=== PATIENT | male | born 1970 | race Caucasian/White ===

== ENCOUNTER 2023-03-31 08:50 | Outpatient (OUT) | payer MEDICARE, MEDICAID, SELFPAY ==
[2023-03-31 10:18] LABS: Basophils Absolute Auto 0.1 10^3/uL (0.0-0.1); Eosinophils Absolute Auto 0.2 10^3/uL (0.0-0.7); Eosinophils Percent Auto 3.4 % (0.9-7.0); Hematocrit 42.7 % (42.0-54.0); Lymphocytes Absolute Auto 2.7 10^3/uL (1.2-3.8); Lymphocytes Percent Auto 43.7 % (20.5-60.0); Mean Corpuscular HGB Conc 32.8 g/dL (29.9-35.2); Mean Corpuscular Hemoglobin 28.5 pg (25.9-34.0); Mean Platelet Volume 10.5 fL (9.5-13.5); Monocytes Absolute Auto 0.5 10^3/uL (0.3-0.8); Monocytes Percent Auto 8.7 % (1.7-12.0); Neutrophils Absolute Auto 2.6 10^3/uL (1.4-6.5); Neutrophils Percent Auto 43.2 % (43.0-75.0); Platelet Count 185 10^3/uL (150-450); Red Blood Count 4.91 10^6/uL (4.70-6.10); Red Cell Distribution Width 14.6 % (11.0-15.0); White Blood Count 6.1 10^3/uL (4.0-11.0)
[2023-03-31 10:59] LABS: Alanine Aminotransferase 22 U/L (16-63); Albumin Level 3.6 g/dL (3.4-5.0); Alkaline Phosphatase 68 U/L (46-116); Anion Gap 12.5; Aspartate Amino Transferase 21 U/L (15-37); BUN Creatinine Ratio 16.8; Bilirubin Total 0.5 mg/dL (0.2-1.0); Calcium 9.2 mg/dL (8.5-10.1); Carbon Dioxide 27.6 mmol/L (21.0-32.0); Chloride 103 mmol/L (98-107); Estimated GFR (African America >60 (>=60); Estimated GFR (Non-African Ame >60 (>=60); Globulin 3.5 g/dL; Glucose 87 mg/dL (74-106); Potassium 4.1 mmol/L (3.5-5.1); Sodium 139 mmol/L (136-145); Total Protein 7.1 g/dL (6.4-8.2)
== END 2023-03-31 08:51 | disposition home or self-care (01) ==
DX: C30.0 Malignant neoplasm of nasal cavity (principal); C31.9 Malignant neoplasm of accessory sinus, unspecified; E05.90 Thyrotoxicosis, unspecified without thyrotoxic crisis or storm
CPT/HCPCS: 36415; 80053; 84443; 85025

== ENCOUNTER 2023-06-11 08:39 | Emergency (ER) | payer MEDICARE, MEDICAID, SELFPAY ==
[2023-06-11 08:46] VITALS: BP 147/89; PULSE 56; TEMP 36.4; O2SAT 99; BMI 22.0
[2023-06-11] MEDS: FLUORESCEIN SODIUM 1 MG STRIP OP (09:09)
[2023-06-11] MEDS: TETRACAINE HCL 0.5% OP SOL 80 DROP/4 ML BOTTLE OP (09:09)
--- NOTE | 2023-06-11 10:07 | ED_ITS ---
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 he complains of some irritation to the left eye and some crusting this morning - this occurred yesterday. 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 Related Data Previous Rx's ?Medication ?Instructions ?Recorded tobramycin 0.3 % eye drops 1 drp ophthalmic (eye) QID #5 mL 06/11/23 Allergies Allergy/AdvReac Type Severity Reaction Status Date / Time No Known Drug Allergies Allergy Verified 06/11/23 08:46 Exam Narrative Exam Narrative: General: The patient appears well and in no apparent distress. Patient is resting comfortably on cart. Skin: Warm, dry, no pallor noted. Head: Patient had reconstructive surgery on the right side of the face and had removal of the nose and right eye. Remainder of the face and scalp are normocephalic, atraumatic Neck: Supple, trachea mid-line, no tenderness, no lymphadenopathy Eye: He has only one eye - the left. Normal extraocular motion without associated pain. Pupils equal, round and reactive to light. Conjunctival injection noted to left eye. No swelling of the upper/lower eyelid. Patient's upper eyelid was everted - no evidence of foreign body. The patient had TETRACAINE applied to the left eye with fluorescein dye instilled afterward. Exam with Wood's lamp showed uptake at the 9 o'clock position of the cornea. No evidence of hyphema, dendritic lesion, corneal ulcerations, preseptal cellulitis or orbital cellulitis. Ears, Nose, Mouth, and Throat: oral mucosa is moist Respiratory: Patient is in no distress Neurological: A&O x4, normal speech Psychiatric: Cooperative and interactive. Constitutional Vital Signs, click to edit/add: Last Vital Signs Temp 97.6 F 06/11/23 08:46 Pulse 56 L 06/11/23 08:46 Resp 20 06/11/23 08:46 BP 147/89 H 06/11/23 08:46 Pulse Ox 99 06/11/23 08:46 O2 Del Method Room Air 06/11/23 08:46 Course Vital Signs Vital signs: Vital Signs Temperature 97.6 F 06/11/23 08:46 Pulse Rate 56 L 06/11/23 08:46 Respiratory Rate 20 06/11/23 08:46 Blood Pressure 147/89 H 06/11/23 08:46 Pulse Oximetry 99 06/11/23 08:46 Oxygen Delivery Method Room Air 06/11/23 08:46 Temperature 97.6 F 06/11/23 08:46 Pulse Rate 56 L 06/11/23 08:46 Respiratory Rate 20 06/11/23 08:46 Blood Pressure 147/89 H 06/11/23 08:46 Pulse Oximetry 99 06/11/23 08:46 Oxygen Delivery Method Room Air 06/11/23 08:46 MDM - Eye Problem MDM Narrative Medical decision making narrative: Foreign body identified on fluorescein exam and direct visualization of the left eye was removed using the needle tip of an 18-gauge needle. I tried to use a moistened Q-tip to remove the foreign body but it was simply embedded too much for that to work. I was able to easily remove it with a needle tip and the patient tolerated the procedure well. Afterwards I reinspected the and he had no residual material or rust ring. He was discharged home with prescription for tobramycin and referral to Dr. Dennis, campaign management senior manager, for follow-up since this patient is monocular. Discharge Plan Discharge Stand Alone Forms: Portal Instructions Chief Complaint: Eye Problems Clinical Impression: Acute foreign body of left cornea Patient Disposition: Home, Self-Care Time of Disposition Decision: 10:08 Prescriptions / Home Meds: New tobramycin 0.3 % drops 1 drp ophthalmic (eye) QID Qty: 5 0RF Print Language: Citizen Of [place] Instructions: Eye Foreign Body (ED) Referrals: Blaine Dennis MD [Physician] - As soon as possible
== END 2023-06-11 10:19 | disposition home or self-care (01) ==
PROVIDERS: Emergency Provider Emergency Medicine
DX: T15.02XA Foreign body in cornea, left eye, initial encounter (principal); W44.9XXA Unspecified foreign body entering into or through a natural orifice, initial encounter; Z90.01 Acquired absence of eye; Z90.09 Acquired absence of other part of head and neck; Z85.9 Personal history of malignant neoplasm, unspecified
CPT/HCPCS: 65220; 99283

== ENCOUNTER 2024-11-08 16:57 | Emergency (ER) | payer MEDICARE, MEDICAID, SELFPAY ==
[2024-11-08 17:11] VITALS: BP 140/84; PULSE 56; TEMP 36.8; O2SAT 100; BMI 21.6
--- NOTE | 2024-11-08 19:25 | XR_ITS ---
[facility] [place] [id number] Patient Name: NALDO ALVAREZ MRN: [id number] date: 1970 Sex: M Assigned Patient Location: ER Current Patient Location: ER Accession/Order Number: [id number] Exam Date: 11/08/2024 19:40 Report Date: 11/08/2024 20:07 At the request of: ELLE DIAZ MD Procedure: XR knee LT 4V 4 views left knee CLINICAL HISTORY: fall off ladder, left knee pain, swelling COMPARISON: None FINDINGS: No fractures or dislocation. Mild degenerative changes greatest involving the patellofemoral compartments. Small to moderate size joint effusion. XR/XR knee LT 4V IMPRESSION: JOINT EFFUSION. MILD DEGENERATIVE CHANGE. NEGATIVE ACUTE OSSEOUS ABNORMALITIES. Impression dictated by: Jorge Tang M.D. 11/08/2024 8:07 PM Dictation Location: [place] [address] Electronically authenticated by: [id number] Y Date: 11/08/2024 20:07
--- NOTE | 2024-11-08 19:35 | ED.LOWEXI1 ---
HPI HPI - Extremity Injury (Lower) General Chief Complaint: Extremity Injury, Lower Stated Complaint: LEFT KNEE SHOOTING PAIN DOWN LEG Time Seen by Provider: 11/08/24 19:15 Source: patient Mode of arrival: walk-in History of Present Illness HPI Narrative: This 53-year-old male presents for evaluation of left knee pain and swelling. The patient states he was on the ladder cutting down a tree when the branch gave way causing him to fall off of the ladder. He landed on his left knee. He denies striking his head. He has no neck or back pain. He has pain and swelling at the distal femur with an effusion at the proximal aspect of the knee. He does not have any foot ankle or lower leg pain. Since that time he has been ambulatory and drove himself to the emergency department. Patient is status post extensive head and neck surgery status post cancer and does not wish to have any narcotic medications. Related Data Previous Rx's ?Medication ?Instructions ?Recorded tobramycin 0.3 % eye drops 1 drp ophthalmic (eye) QID #5 mL 06/11/23 Allergies Allergy/AdvReac Type Severity Reaction Status Date / Time No Known Drug Allergies Allergy Verified 06/11/23 08:46 Opioid HPI Opioid Management Most Recent Pain and Opioid Data: Last Pain Scale 3 06/11/23, 08:50 Review of Systems ROS Status of ROS 10 or more systems reviewed and unremarkable except as noted in history and below PFSH PFSH Social History Little interest or pleasure in doing things: not at all Feeling down, depressed, or hopeless: not at all Exam Narrative Exam Narrative: Vital signs and Nursing Notes reviewed: Patient is afebrile with a normal pulse, blood pressure is mildly elevated at 140/84, he has not hypoxic with pulse ox of 100% on room air General: Awake, alert, oriented, pleasant adult male, no acute distress, lying comfortably on the stretcher HEENT: Normocephalic atraumatic, patient is status post resection of his entire nose with an open gaping hole in the center of his face and status post right orbital resection with a skin graft over the right side of his face. No facial injury appreciated Neck: Supple, no Bony vertebral tenderness or step-off Chest: Lungs are clear to auscultation with good air entry, there is no wheezing rhonchi or rales appreciated no accessory muscle use, patient is speaking in complete sentences-no chest wall tenderness to palpation CVS: Regular rate and rhythm S1-S2, no murmurs rubs or gallops, pulses are brisk and equal bilaterally Extremities: Patient is able to flex his left knee but this does cause him some degree of pain. Negative anterior drawer, pain with valgus and varus strain. He is lying with it flexed and the lateral aspect of the knee is lying on an ice pack. There is an effusion at the distal femur/proximal knee area. No bony deformity noted. There is no calf swelling or tenderness. Foot is warm and sensate with normal pulses Skin: Normal in appearance without rash,pallor, petechiae or purpura Neuro: No focal deficits Constitutional Vital Signs, click to edit/add: Last Vital Signs Temp 98.2 F 11/08/24 17:11 Pulse 56 L 11/08/24 17:11 Resp 18 11/08/24 17:11 BP 140/84 11/08/24 17:11 Pulse Ox 100 11/08/24 17:11 O2 Del Method Room Air 11/08/24 17:11 Course Vital Signs Vital signs: Vital Signs Temperature 98.2 F 11/08/24 17:11 Pulse Rate 56 L 11/08/24 17:11 Respiratory Rate 18 11/08/24 17:11 Blood Pressure 140/84 11/08/24 17:11 Pulse Oximetry 100 11/08/24 17:11 Oxygen Delivery Method Room Air 11/08/24 17:11 Temperature 98.2 F 11/08/24 17:11 Pulse Rate 56 L 11/08/24 17:11 Respiratory Rate 18 11/08/24 17:11 Blood Pressure 140/84 11/08/24 17:11 Pulse Oximetry 100 11/08/24 17:11 Oxygen Delivery Method Room Air 11/08/24 17:11 MDM - Extremity Injury (Lower) MDM Narrative Medical decision making narrative: This 53-year-old male presents for evaluation of left knee pain after falling off a ladder and twisting his knee. He has tenderness and swelling at the distal femur/proximal knee area. He is able to flex it, the joint is stable. There is no tenderness to the foot, ankle or calf. There is no hip tenderness. After the fall the patient was able to ambulate. He was medicated with Tylenol and Motrin at his request he did not want any narcotic medications. X-ray of the extremity shows a joint effusion and degenerative changes with no fracture or dislocation. He was placed in a knee immobilizer and given crutches for ambulation. He will be discharged home with referral to outpatient orthopedics and a prescription for ibuprofen 600 mg will be given to him at the time of discharge. Differential Diagnosis Differential diagnosis: Likely acute internal derangement of knee and fracture of femur Discharge Plan Discharge Chief Complaint: Extremity Injury, Lower Clinical Impression: Acute internal derangement of knee, Left knee sprain Patient Disposition: Home, Self-Care Time of Disposition Decision: 20:33 Condition: Good Prescriptions / Home Meds: No Action tobramycin 0.3 % drops 1 drp ophthalmic (eye) QID Qty: 5 0RF Print Language: Finnish Instructions: Knee Sprain (ED), Crutch Instructions (ED), Swollen Knee Joint (ED) Referrals: Physician,Non-Staff, [Primary Care Provider] - 1 week Charlie Gifford MD [Physician, Orthopedics] - 1 week
[2024-11-08] MEDS: IBUPROFEN 600 MG TABLET PO (19:41)
[2024-11-08] MEDS: ACETAMINOPHEN 325 MG TABLET 650 MG PO (19:41)
== END 2024-11-08 20:51 | disposition home or self-care (01) ==
PROVIDERS: Emergency Provider Emergency Medicine
DX: S83.92XA Sprain of unspecified site of left knee, initial encounter (principal); M23.92 Unspecified internal derangement of left knee; W11.XXXA Fall on and from ladder, initial encounter; Z85.9 Personal history of malignant neoplasm, unspecified
CPT/HCPCS: 73564; 99283